=== PATIENT | female | born 1940 | race Caucasian/White ===

== ENCOUNTER 2018-03-10 16:47 | Inpatient (IN) | payer MEDICARE, MEDICAID ==
[~2018-03-10] VITALS: Ht 157.5 cm; Wt 72.0 kg
[~2018-03-10 16:47] MED LIST: ABILIFY5 MG PO; ADVAIR DISK2 IN; ALLEGRA60 MG OR; ALLOPURINOL100 MG PO; AMLODIPINE BESYL5 MG PO; ASPIRIN CHEWABL81 MG PO; ATENOLOL25 MG; ATENOLOL25 MG PO; AZITHROMYCIN250 MG OR; BACTRIM DS1 TAB OR; BENAZEPRIL40 MG OR; BENAZEPRIL5 M1 OR; CEPHALEXIN500 MG OR; CIPRO500 MG OR; CIPROFLOXACN500 MG PO; CLARITIN10 M1 PO; CLONIDINE0.1 MG PO; COZAAR50 MG PO; ECOTRIN325 MG OR; ECOTRIN325 MG PO; HYDROCHLOROT12.5 MG PO; IMDUR30 MG PO; IMDUR60 MG PO; LEVOTHROID75 MCG PO; LISINOPRIL20 MG PO; LISINOPRIL40 MG PO; LOPID600 MG PO; LOPRESSOR25 MG PO; LORTAB 5 OR; MAXZIDE1 TAB OR; MEDDOSEPAK OR; MEDDOSEPAK PO; METO50TA52 PO; METOPROLOL25 M1 PO; MULTIVITAMIN PO; NAPROSYN500 MG OR; NITROSTAT0.4 MG SL; NO; NO MEDS; NORVASC10 MG PO; PLAVIX75 MG OR; POOR HISTORIAN; PREDNISONE20 MG OR; ROBITUSSIN AC10 ML OR; TESSALON200 MG OR; TOPROL; VENTOLIN HFA IN; ZOCOR20 MG PO; ZOCOR80 MG OR; ZPAK OR; ZPAK PO
--- NOTE | 2018-03-10 16:56 | NUR ---
PT STATES THAT SHE HAD LEFT SIDED NUMBNESS ABOUT 20 MINS PRIOR TO EMS ARRIVAL. PT STATES ALL ISSUES HAVE RESOLVED. PT HAS DIFFICULTY RECALLING , ADDRESS OR EVENTS, EMS STATES PER FAMILY THIS IS PT NORMAL MENTATION. PT IS AOX3. PT DENIES ANY C/P, SOB, N/V OR WEAKNESS. PT IS VERY JOKATIVE AND SHOWING NO DISTRESS. PT RECIEVED A 0 ON NIHSS.
[2018-03-10 17:10] LABS: HEMATOCRIT 45.2 % (37.0-47.0); HEMOGLOBIN 14.9 g/dl (12.0-16.0); IMMATURE GRANULOCYTES 0.3 % (0.0-1.0); MEAN CELL VOLUME 96.8 fL CALC (80.0-100.0); MEAN CORPUSCULAR HGB 31.9 pG CALC (26.0-32.0); NEUT# 6.96 thou/uL (2.00-7.15); RED BLOOD COUNT 4.67 mill/uL (4.20-5.60); RED CELL DISTRI WIDTH 12.8 % (11.5-15.5)
[2018-03-10 17:27] LABS: ALBUMIN 4.5 g/dL (3.2-5.0); ALKALINE PHOSPHATASE 102 u/l (38-126); ANION GAP 16 (6-22 (CALC)); BILIRUBIN, TOTAL 0.6 mg/dL (0.0-1.4); BUN 16 mg/dL (8-23); BUN/CREATININE RATIO 21 (12-20 (CALC)); CARBON DIOXIDE 22 mmol/l (22-30); CHLORIDE 107 mmol/l (95-108); CREATININE 0.8 mg/dL (0.5-1.0); GFR > 60 ML/MIN (>=60 (CALC)); GFR FOR AFR.AMER. > 60 ML/MIN (>=60 (CALC)); POTASSIUM 3.7 mmol/l (3.5-5.1); SGOT/AST 34 u/l (9-36); SGPT/ALT 20 u/l (11-66); SODIUM 140 mmol/l (137-146); TOTAL PROTEIN 8.2 g/dL (6.3-8.2)
--- NOTE | 2018-03-10 17:56 | NUR ---
PT RESTING ON STRETCHER WITH FAMILY AT BEDSIDE, NO COMPLAINTS STATED AT THIS TIME.
--- NOTE | 2018-03-10 18:27 | NUR ---
PT DAUGHTER VASILE [phone] TO BE CALLED FOR ANY ISSUES
--- NOTE | 2018-03-10 18:27 | NUR ---
PT AMBULATED TO RESTROOM AND BACK TO BED WITH STEADY GAIT
[2018-03-10 18:42] LABS: URINE BILIRUBIN - DIPSTICK NEGATIVE (NEGATIVE); URINE BLOOD DIPSTICK TRACE-INTACT (NEGATIVE); URINE COLOR YELLOW; URINE GLUCOSE - DIPSTICK NEGATIVE (NEGATIVE); URINE KETONE NEGATIVE (NEGATIVE); URINE NITRITE - DIPSTICK NEGATIVE (Negative); URINE PROTEIN - DIPSTICK NEGATIVE (NEG-TRACE); URINE SPECIFIC GRAVITY 1.015; URINE UROBILINOGEN - DIPSTICK 0.2 E.U./dL (0.2)
[2018-03-10 18:44] LABS: URINE CLARITY TURBID; URINE LEUK ESTERASE LARGE (NEGATIVE)
[2018-03-10 18:45] LABS: URINE BACTERIA MODERATE hpf; URINE RBC 0-2 RBC/hpf (0-5); URINE SQUAMOUS EPITHELIAL CELL FEW EPI/hpf (0-FEW)
--- NOTE | 2018-03-10 18:54 | NUR ---
REPORT CALLED TO OFELIA LEE- ACCEPTED PT
[2018-03-10 19:10] VITALS: BP 149/89
--- NOTE | 2018-03-10 19:15 | NUR ---
PT.ARRIVED TO THE FLOOR VIA STRETCHER ACCOMPANIED BY ED NURSE. PT.APPEARS TO BE IN STABLE CONDITION AT THIS TIME. V/S ARE BEING ASSESSED AND PT ORIENTED TO ROOM,CALL SYSTEM,LIGHTS, BED AND TV. WILL FOLLOW-UP WITH ASSESSMENT AND MEDICATIONS ORDERED.
--- NOTE | 2018-03-10 19:16 | NUR ---
PT TO FLOOR ON MONITOR WITHOUT INCIDENT. PT AMBULATORY TO BED WITH CANE. NAD. LOPRESSOR GIVEN PRIOR TO TAKING PT TO FLOOR.
--- NOTE | 2018-03-10 22:06 | NUR ---
PT.MEDICATED ORDERS PROVIDE. NEURO'S INTACT. NO S/S OF DISTRESS. PT DENIES ANY NUMBNESS TO FACE OR HANDS ORIGINALLY REPORTED UPON ARRIVAL TO HOSP. PT ENCOURAGED TO CALL IF ANY NEEDS ARISE.
[2018-03-11 00:25] VITALS: BP 137/50
[2018-03-11 04:45] VITALS: BP 133/79
--- NOTE | 2018-03-11 04:50 | NUR ---
NEURO'S INTACT, PT WAS SLEEPING. V/S ASSESSED AND PT ASSISTED W/PO FLUIDS. CALL LIGHT AT SIDE AND PT ENCOURAGED TO CALL NEEDS ARISE.
[2018-03-11 06:09] LABS: IMMATURE GRANULOCYTES 0.4 % (0.0-1.0); MEAN CELL VOLUME 96.8 fL CALC (80.0-100.0); MEAN CORPUSCULAR HGB 32.3 pG CALC (26.0-32.0); MEAN CORPUSCULAR HGB CONC 33.3 g/L CALC (32.0-36.0); NEUT# 5.04 thou/uL (2.00-7.15); RED BLOOD COUNT 4.34 mill/uL (4.20-5.60); RED CELL DISTRI WIDTH 12.6 % (11.5-15.5)
[2018-03-11 06:20] LABS: ANION GAP 13 (6-22 (CALC)); BUN 15 mg/dL (8-23); BUN/CREATININE RATIO 19 (12-20 (CALC)); CARBON DIOXIDE 23 mmol/l (22-30); CHLORIDE 110 mmol/l (95-108); CREATININE 0.8 mg/dL (0.5-1.0); GFR > 60 ML/MIN (>=60 (CALC)); GFR FOR AFR.AMER. > 60 ML/MIN (>=60 (CALC)); POTASSIUM 3.6 mmol/l (3.5-5.1); SODIUM 142 mmol/l (137-146)
[2018-03-11 07:00] VITALS: BP 176/103
[2018-03-11 11:06] VITALS: BP 149/90
--- NOTE | 2018-03-11 12:00 | NUR ---
PT HAS SHOWERED, OOB TO CHAIR THIS AM. NO DISTRESS NOTED, NO COMPLAINTS. PT SEEN BY DR POMPA.
[2018-03-11 15:23] VITALS: BP 143/96
--- NOTE | 2018-03-11 16:00 | NUR ---
PT SEEN BY JUAN RAMON EARLIER, APPEARED CONFUSED UPON WAKING. A FEW MINUTES LATER SHE HAD RETURNED TO NORMAL EXPRESSIONS. PT DOES NOT HAVE ANY COMPLAINTS.
[2018-03-11 17:10] LABS: PROTHROMBIN TIME 11.1 SECONDS (9.0-12.5)
--- NOTE | 2018-03-11 19:00 | NUR ---
RECEIVED CHANGE OF SHIFT REPORT FROM ROSA COLEY. PT ALERT AND ORIENTED AND LYING IN BED. DENIES PAIN OR DISCOMFORT. NO APPARENT ACUTE DISTRESS NOTED. WILL CONTINUE TO MONITOR.
[2018-03-11 19:09] VITALS: BP 136/74
--- NOTE | 2018-03-12 | NUR ---
PT RESTING QUIETLY AT THIS TIME. NO APPARENT ACUTE DISTRESS NOTED.
[2018-03-12 00:40] VITALS: BP 134/74
[2018-03-12 03:50] VITALS: BP 158/89
--- NOTE | 2018-03-12 04:00 | NUR ---
PT SLEPT WEL DURING THE NIGHT. NO APPARENT ACUTE CHANGES NOTED IN PT'S CONDITION.
[2018-03-12 05:11] LABS: HEMATOCRIT 43.2 % (37.0-47.0); HEMOGLOBIN 14.4 g/dl (12.0-16.0); MEAN CELL VOLUME 97.3 fL CALC (80.0-100.0); MEAN CORPUSCULAR HGB 32.4 pG CALC (26.0-32.0); MEAN CORPUSCULAR HGB CONC 33.3 g/L CALC (32.0-36.0); RED BLOOD COUNT 4.44 mill/uL (4.20-5.60); RED CELL DISTRI WIDTH 12.7 % (11.5-15.5)
[2018-03-12 05:29] LABS: PROTHROMBIN TIME 11.6 SECONDS (9.0-12.5)
[2018-03-12 05:40] LABS: ANION GAP 17 (6-22 (CALC)); BUN 17 mg/dL (8-23); BUN/CREATININE RATIO 23 (12-20 (CALC)); CALCULATED LDLCHOLESTEROL 163 mg/dL (62-129 (CALC)); CARBON DIOXIDE 20 mmol/l (22-30); CHLORIDE 108 mmol/l (95-108); CHOLESTEROL HDL RATIO 5.7 (<4.4 (CALC)); CREATININE 0.7 mg/dL (0.5-1.0); GFR > 60 ML/MIN (>=60 (CALC)); GFR FOR AFR.AMER. > 60 ML/MIN (>=60 (CALC)); HDL CHOLESTEROL 42 mg/dL (>=40); MAGNESIUM 1.5 mg/dL (1.6-2.3); POTASSIUM 4.1 mmol/l (3.5-5.1); SODIUM 141 mmol/l (137-146); TOTAL CHOLESTEROL 237 mg/dl (0-199); TOTAL TRIGLYCERIDES 161 mg/dl (30-149); VLDL CHOLESTROL 32 mg/dl (0-48 (CALC))
--- NOTE | 2018-03-12 07:00 | NUR ---
SHIFT CHANGE REPORT FROM SAÚL, PT AWAKE ALERT AND ORIENTED SITTING UP IN CHAIR, STATES SHE FEELS MUCH BETTER TODAY, NO C/O DISCOMFORT, TELE MONITOR IN PLACE, CALL LANDRY IN REACH.
[2018-03-12 09:36] VITALS: BP 160/83
--- NOTE | 2018-03-12 12:00 | NUR ---
AMBULATES HALLWAYS PERIODICALLY BY SLEF, ALL NEEDS MET/ADDRESSED, CALL LANDRY IN REACH.
--- NOTE | 2018-03-12 15:35 | NUR ---
AMBULATING IN ROOM, NO COMPLAIN AT THIS TIME, ALL NEEDS ADDRESSED, CALL LANDRY IN REACH.
[2018-03-12 16:28] VITALS: BP 182/82
--- NOTE | 2018-03-12 19:00 | NUR ---
RECEIVED CHANGE OF SHIFT REPORT FROM ROSA RANDALL. PT ALERT AND ORIENTED AND LYING IN BED. NO VOICED COMPLAINTS. NO APPARENT ACUTE DISTRESS NOTED AT THIS TIME. WILL CONTINUE TO MONITOR.
[2018-03-12 19:11] VITALS: BP 160/85
--- NOTE | 2018-03-13 | NUR ---
RESTING QUIETLY. NO APPARENT ACUTE DISTRESS NOTED.
[2018-03-13 00:27] VITALS: BP 142/80
[2018-03-13 04:00] VITALS: BP 148/100
--- NOTE | 2018-03-13 04:00 | NUR ---
PT RESTED WELL DURING THE NIGHT. NO APPARENT ACUTE CHANGES NOTED IN PT'S CONDITION.
[2018-03-13 08:00] VITALS: BP 162/94
[2018-03-13 08:24] LABS: INTERNATIONAL NORMALIZED RATIO 1.1 RATIO (0.7-1.3); PROTHROMBIN TIME 12.3 SECONDS (9.0-12.5)
--- NOTE | 2018-03-13 10:48 | NUR ---
PT SEEN AWAKE, ALERT, ORIENTED X 3. PT WITH CLEAR SPEECH THIS AM, NO INDICATION OF TIA-LIKE ACTIVITY. PT HAS BEEN TO MRI AND BACK, AWAITING THOSE RESULTS.
[2018-03-13 11:00] VITALS: BP 153/91
--- NOTE | 2018-03-13 12:54 | NUR ---
PT SEEN BY DR BOSCH THIS AM, AWARE OF PENDING CARDIOLOGY CONSULT WITH DR GONSALEZ LATER TODAY. PT HAS BEEN ALERT, AMBULATING WITHOUT DIFFICULTY IN ROOM.
[2018-03-13] MEDS ORDERED: LOPRESSOR25 MG PO (13:00)
[2018-03-13] MEDS ORDERED: ATORVASTATIN CA10 MG PO (13:00)
[2018-03-13] MEDS ORDERED: ELIQUIS5 MG PO (13:03)
[2018-03-13] MEDS ORDERED: MEDDOSEPAK PO (13:03)
[2018-03-13 14:59] VITALS: BP 175/76
--- NOTE | 2018-03-13 16:19 | NUR ---
PT CONTINUES TO WAIT IN ROOM FOR DR GONSALEZ. NO DISTRESS, NO COMPLAINTS. FAMILY MEMBER UPDATED.
== END 2018-03-13 18:35 | disposition home or self-care (01) | DRG 309 ==
LOC: ED 16:47 → ED-I 18:09 → ED 18:23 → MS2 18:24
PROVIDERS: Emergency Medicine; Internal Medicine; Nurse Practitioner Family; ADMIT Internal Medicine; ATTEND Internal Medicine
DX: I48.91 Unspecified atrial fibrillation (principal); G45.9 Transient cerebral ischemic attack, unspecified; N39.0 Urinary tract infection, site not specified; I10 Essential (primary) hypertension; M10.9 Gout, unspecified; H91.90 Unspecified hearing loss, unspecified ear; I25.10 Atherosclerotic heart disease of native coronary artery without angina pectoris; E78.5 Hyperlipidemia, unspecified; R41.3 Other amnesia; J20.9 Acute bronchitis, unspecified; I65.22 Occlusion and stenosis of left carotid artery; I25.2 Old myocardial infarction; B96.20 Unspecified Escherichia coli [E. coli] as the cause of diseases classified elsewhere; Z86.73 Personal history of transient ischemic attack (TIA), and cerebral infarction without residual deficits; Z87.440 Personal history of urinary (tract) infections
CPT/HCPCS: J1650

== ENCOUNTER 2018-06-06 08:33 | Emergency (ER) | payer MEDICARE, MEDICAID ==
[~2018-06-06] VITALS: Ht 157.5 cm; Wt 90.0 kg
[~2018-06-06 08:33] MED LIST changes: +ATORVASTATIN CA10 MG PO; +ELIQUIS5 MG PO
[2018-06-06 09:10] LABS: ALBUMIN 4.2 g/dL (3.2-5.0); ALKALINE PHOSPHATASE 120 u/l (38-126); ANION GAP 21 (6-22 (CALC)); BILIRUBIN, TOTAL 0.5 mg/dL (0.0-1.4); BUN 18 mg/dL (8-23); BUN/CREATININE RATIO 22 (12-20 (CALC)); CARBON DIOXIDE 22 mmol/l (22-30); CHLORIDE 105 mmol/l (95-108); CREATININE 0.8 mg/dL (0.5-1.0); GFR > 60 ML/MIN (>=60 (CALC)); GFR FOR AFR.AMER. > 60 ML/MIN (>=60 (CALC)); LIPASE 72 u/l (23-300); POTASSIUM 4.5 mmol/l (3.5-5.1); SGOT/AST 35 u/l (9-36); SODIUM 143 mmol/l (137-146); TOTAL PROTEIN 7.5 g/dL (6.3-8.2)
[2018-06-06 09:12] LABS: HEMATOCRIT 45.1 % (37.0-47.0); HEMOGLOBIN 14.7 g/dl (12.0-16.0); IMMATURE GRANULOCYTES 0.4 % (0.0-5.0); MEAN CELL VOLUME 95.8 fL CALC (80.0-100.0); MEAN CORPUSCULAR HGB 31.2 pG CALC (26.0-32.0); MEAN CORPUSCULAR HGB CONC 32.6 g/L CALC (32.0-36.0); NEUT# 9.96 thou/uL (2.00-7.15); RED BLOOD COUNT 4.71 mill/uL (4.20-5.60); RED CELL DISTRI WIDTH 12.8 % (11.5-15.5)
[2018-06-06 09:53] LABS: URINE BILIRUBIN - DIPSTICK NEGATIVE (NEGATIVE); URINE BLOOD DIPSTICK SMALL (NEGATIVE); URINE COLOR YELLOW; URINE GLUCOSE - DIPSTICK NEGATIVE (NEGATIVE); URINE KETONE TRACE mg/dL (NEGATIVE); URINE LEUK ESTERASE NEGATIVE (NEGATIVE); URINE NITRITE - DIPSTICK NEGATIVE (Negative); URINE PROTEIN - DIPSTICK 100 mg/dL (NEG-TRACE); URINE SPECIFIC GRAVITY >=1.030; URINE UROBILINOGEN - DIPSTICK 0.2 E.U./dL (0.2)
[2018-06-06 09:54] LABS: URINE CLARITY SL CLOUDY; URINE EPITHELIAL CELLS MODERATE EPI/hpf (0-FEW)
[2018-06-06 10:36] LABS: INFLUENZA A NONE DETECTED (NONE DETECT); INFLUENZA B NONE DETECTED (NONE DETECT)
[2018-06-06 11:28] VITALS: BP 175/106
== END 2018-06-06 11:28 | disposition short-term general hospital (02) ==
LOC: ED 08:33
PROVIDERS: Family Medicine
PROC: 0T2BX0Z Change Drainage Device in Bladder, External Approach (ICD-10-PCS; principal; 2018-06-06)
DX: I77.1 Stricture of artery (principal); R41.82 Altered mental status, unspecified; I10 Essential (primary) hypertension; Z86.73 Personal history of transient ischemic attack (TIA), and cerebral infarction without residual deficits; I25.2 Old myocardial infarction; I48.91 Unspecified atrial fibrillation; R53.1 Weakness
CPT/HCPCS: Q9967